=== PATIENT | female | born 1990 | race American Indian/Alaskan Native ===

== ENCOUNTER 2021-03-26 21:46 | Emergency (ER) | payer SELFPAY ==
--- NOTE | 2021-03-26 22:28 | XRay Report ---
CHEST 2 VIEWS INDICATION / CLINICAL INFORMATION: chest pain. COMPARISON: None available. FINDINGS: SUPPORT DEVICES: None. HEART / MEDIASTINUM: No significant abnormality. LUNGS / PLEURA: No significant pulmonary or pleural abnormality. No pneumothorax. ADDITIONAL FINDINGS: No significant additional findings. IMPRESSION: 1. No acute findings. Signer Name: Karlo Suggs MD Signed: 03/26/2021 10:24 PM Workstation Name: [id number]
--- NOTE | 2021-03-26 22:36 | Emergency Department Report ---
ED Chest Pain HPI - General Chief Complaint: Chest Pain Stated Complaint: CHEST PAIN Time Seen by Provider: 03/26/21 22:25 Source: patient Mode of arrival: Ambulatory Limitations: No Limitations - History of Present Illness Initial Comments: 30-year-old female, history of bipolar disorder, presents to ED with complaint of chest pain. Patient states he began experiencing pressure-like chest pain in the center of her chest when driving home approximately 2 hours ago. Patient denies any associated pleuritic pain, palpitations, shortness of breath, nausea or vomiting, diaphoresis. She denies any leg pain or swelling. Patient states ED pressure is now improved. She denies any cough or fever. She reports she smokes Black and mild cigars and marijuana. She denies any other drug use. Mother came to bedside later and expressed that patient needs a mental health evaluation. States patient is off of her medication for bipolar disorder. Patient has been paranoid, thinking someone is after her. Patient has been having mood swings. Patient has also been hearing voices. Mother states patient has been unable to sleep for several days, she has not been eating. She actually kicked her out of the house 3 days ago. Mother states abel lezama's says patient has had this erratic behavior for approximately the last 2 months, however he did not alert patient's family about it. Patient denies any SI or HI. Patient's mother, Ashlee Chiang, can be reached at [phone]. Complaint: chest pain -: hour(s) (2) Pain Location: substernal Pain Radiation: none Severity: moderate Quality: pressure Consistency: now resolved Improves With: nothing Worsens With: nothing re: denies: nausea, vomting, diaphoresis, dyspnea Other Symptoms: denies: cough, fever, leg swelling Treatments Prior to Arrival: none - Related Data Previous Rx's Medication Instructions Recorded Last Taken Type FLUoxetine [PROzac] 20 mg PO QDAY #30 capsule 03/28/21 Unknown Rx OLANZapine [Zyprexa] 5 mg PO DAILY #30 tablet 03/28/21 Unknown Rx Potassium Chloride [K-Dur] 20 meq PO BID #20 tab 03/28/21 Unknown Rx traZODone [Desyrel] 50 mg PO QHS #30 tab 03/28/21 Unknown Rx Allergies Allergy/AdvReac Type Severity Reaction Status Date / Time Fish Containing Products Allergy Unknown Verified 03/27/21 09:31 Heart Score - HEART Score History: Slightly suspicious EKG: Normal Age: < 45 Risk factors: No known risk factors Troponin: < normal limit HEART Score: 0 - EKG Read Time Time EKG Completed: 22:04 EKG Read Time: 22:11 ED Review of Systems ROS: Stated complaint: MH EVAL/CHEST PAIN Other details as noted in HPI Comment: All other systems reviewed and negative Constitutional: denies: chills, fever Respiratory: denies: cough, shortness of breath Cardiovascular: chest pain. denies: palpitations Gastrointestinal: denies: nausea, vomiting Musculoskeletal: other (Denies leg pain or swelling) Psychiatric: auditory hallucinations, other (Paranoia and insomnia reported). denies: suicidal thoughts ED Past Medical Hx - Past Medical History Previous Medical History?: Yes Hx Psychiatric Treatment: Yes (depression, anxiety, bipolar) Additional medical history: herpes - Surgical History Past Surgical History?: Yes Additional Surgical History: - Medications Home Medications: Home Medications Medication Instructions Recorded Confirmed Last Taken Type FLUoxetine [PROzac] 20 mg PO QDAY #30 capsule 03/28/21 Unknown Rx OLANZapine [Zyprexa] 5 mg PO DAILY #30 tablet 03/28/21 Unknown Rx Potassium Chloride [K-Dur] 20 meq PO BID #20 tab 03/28/21 Unknown Rx traZODone [Desyrel] 50 mg PO QHS #30 tab 03/28/21 Unknown Rx ED Physical Exam - General Limitations: No Limitations General appearance: alert, in no apparent distress - Head Head exam: Present: atraumatic, normocephalic - Eye Eye exam: Present: normal appearance, EOMI - ENT ENT exam: Present: mucous membranes moist - Neck Neck exam: Present: normal inspection - Respiratory Respiratory exam: Present: normal lung sounds bilaterally. Absent: respiratory distress - Cardiovascular Cardiovascular Exam: Present: regular rate, normal rhythm - GI/Abdominal GI/Abdominal exam: Present: soft. Absent: distended, tenderness - Extremities Exam Extremities exam: Present: normal inspection. Absent: pedal edema, calf tenderness - Neurological Exam Neurological exam: Present: alert, oriented X3 - Psychiatric Psychiatric exam: Present: normal affect, normal mood - Skin Skin exam: Present: warm, dry, intact, normal color ED Course Vital Signs 03/26/21 03/27/2121 21:59 08:00 19:42 Temperature 98.6 F 98.9 F 98.1 F Pulse Rate 76 75 65 Respiratory 18 20 18 Rate Blood Pressure 107/87 Blood Pressure 126/74 116/71 [Left] O2 Sat by Pulse 100 98 99 Oximetry 03/28/21 03/28/21 01:50 11:28 Temperature 98.2 F 99.2 F Pulse Rate 63 68 Respiratory 16 18 Rate Blood Pressure Blood Pressure 110/62 136/86 [Left] O2 Sat by Pulse 100 100 Oximetry ED Medical Decision Making - Lab Data Result diagrams: 03/26/21 22:32 03/27/21 13:26 - EKG Data -: EKG Interpreted by Me EKG shows normal: sinus rhythm, axis, intervals, QRS complexes, ST-T waves Rate: normal - EKG Data Interpretation: no acute changes - Radiology Data Radiology results: report reviewed, image reviewed - Medical Decision Making 30-year-old female presents to ED with complaints of chest pain. Chest pain work-up is normal. Mother reported that patient has been having some auditory hallucinations, paranoia, insomnia, mood swings and has been off of her bipolar medication. Patient placed on a 1013 at this time for acute psychosis and possible donna. Labs did show some mild hypokalemia, this has been repleted orally. Patient is medically clear for mental health evaluation. Will dispo per psych. Critical care attestation.: If time is entered above; I have spent that time in minutes in the direct care of this critically ill patient, excluding procedure time. ED Disposition Clinical Impression: Bipolar disorder, Hypokalemia, History of chest pain, Encounter for behavioral health screening, History of marijuana use Disposition: DC-01 TO HOME OR SELFCARE Is pt being admited?: No Condition: Stable Instructions: Nonspecific Chest Pain, Adult Additional Instructions: Please continue current outpatient medications. Please follow-up with your primary medical doctor within the next [address] Yee Is a local [facility] doctor. Please follow-up with a sled maker within the next [address] Mitchell is a local sled maker. Please follow-up with outpatient mental health resources that have been provided to the patient. Please make certain to eat foods that are high in potassium, such as bananas. Please have a primary care doctor contact medical records department to obtain copies of laboratory studies, and medical documentation, to follow-up on nonemergent incidental abnormal findings. Recommend that patient abstain from consumption of marijuana, tobacco, smoke products, and alcohol. Please return to the emergency room right away with new pain, worsened pain, migration of pain, projectile vomiting, change in mental status, confusion, inability to tolerate liquid feeds, new, worsened or different symptoms not present on the initial emergency room evaluation. Professional and Agency Contacts To help [facility](02/04) [place] Crisis Line: Suicide Prevention Line: Crisis Text Line: Text START to 393145 Emergency: 911 Outpatient COMMUNITY Behavioral Health Resources: SELVIN: [facility] [address] [place], [place] [address] LAUREL: [facility] [address] [place] [address] HURRICANE: [facility] - [address] [place] [address] Sunday thru Sunday - 8am - 5pm [place]: [facility] Address: [address] [place] [address] LILIAM: [facility] Address: [address] [place] [address] Sunday thru Sunday- 7am-2pm [facility] Address: [address] [place] [address] Sunday thru Sunday: 8:30AM-5PM OUTPATIENT MENTAL HEALTH RESOURCES [facility], [address] [place] [address] CORY Lainez MD: [address] [place], [place] [id number] [facility]: [address] [place], [place] [id number] [address] [address] [place], [place] [id number] [phone] [facility] [address] [facility] [address] [place], [place] [id number] [facility]: [address] [place] [id number] [facility]: [address] [place] [address] Tevin Mays MD: [address] [facility] [address] [facility]: [address] [place] [address] [phone] [place] CRISIS AND ACCESS LINE: * Prescriptions: traZODone [Desyrel] 50 mg PO QHS #30 tab Potassium Chloride [K-Dur] 20 meq PO BID #20 tab FLUoxetine [PROzac] 20 mg PO QDAY #30 capsule OLANZapine [Zyprexa] 5 mg PO DAILY #30 tablet Referrals: LUISA YEE MD [Staff Physician] - 3-5 Days ELSY MITCHELL MD [Staff Physician] - 3-5 Days
[2021-03-26 23:00] LABS: Basophils % (Auto) 0.6 % (0.0-1.8); Eosinophils % (Auto) 0.4 % (0.0-4.3); Hematocrit 39.3 % (30.3-42.9); Hemoglobin 13.6 gm/dl (10.1-14.3); Lymphocytes # (Auto) 1.5 K/mm3 (1.2-5.4); Lymphocytes % (Auto) 30.8 % (13.4-35.0); Mean Corpuscular HGB Conc 35 % (30-34); Mean Corpuscular Volume 91 fl (79-97); Monocytes # (Auto) 0.7 K/mm3 (0.0-0.8); Monocytes % (Auto) 13.5 % (0.0-7.3); Platelet Count 302 K/mm3 (140-440); Red Blood Count 4.29 M/mm3 (3.65-5.03); Red Cell Distribution Width 12.7 % (13.2-15.2)
[2021-03-26 23:09] LABS: INR 1.12 (0.87-1.13)
[2021-03-26 23:10] LABS: Partial Thromboplastin Time 27.6 Sec. (24.2-36.6)
[2021-03-26 23:19] LABS: Blood Urea Nitrogen 5 mg/dL (7-17); Calcium 8.9 mg/dL (8.4-10.2); Hemolysis Index 2
[2021-03-26 23:22] LABS: BUN/Creatinine Ratio 7
[2021-03-26] MEDS ORDERED: POTASSIUM CHLORIDE ER 20 MEQ TAB PO ONE (23:24)
[2021-03-27 00:10] LABS: Bacteria,Urine 1+ /HPF (Negative); Bilirubin,Urine NEG (Negative); Blood,Urine NEG (Negative); Color,Urine Straw (Yellow); Hyaline Casts,Urine 1 /LPF; Protein,Urine <15 mg/dL mg/dL (Negative); Urobilinogen,Urine < 2.0 mg/dL (<2.0)
[2021-03-27 00:13] LABS: Amphetamine Screen,Urine PRESUMPTIVE NEGATIVE; Benzodiazepines Screen,Urine PRESUMPTIVE NEGATIVE; Cannabinoid Screen,Urine PRESUMPTIVE POSITIVE; Cocaine Screen,Urine PRESUMPTIVE NEGATIVE; Methadone Screen,Urine PRESUMPTIVE NEGATIVE; Opiate Screen,Urine PRESUMPTIVE NEGATIVE
[2021-03-27] MEDS ORDERED: diphenhydrAMINE 25 MG CAP PO ONE (00:28)
--- NOTE | 2021-03-27 09:57 | Consultation ---
History of Present Illness - Reason for Consult Consult date: 03/27/21 Reason for consult: mental health eval - History of Present Psychiatric Illness Per ER Note: 30-year-old female, history of bipolar disorder, presents to ED with complaint of chest pain. Patient states he began experiencing pressure- like chest pain in the center of her chest when driving home approximately 2 hours ago. Patient denies any associated pleuritic pain, palpitations, sh ortness of breath, nausea or vomiting, diaphoresis. She denies any leg pain or swelling. Patient states ED pressure is now improved. She denies any cough or fever. She reports she smokes Black and mild cigars and marijuana. She denies any other drug use. Mother came to bedside later and expressed that patient needs a mental health evaluation. States patient is off of her medication for bipolar disorder. Patient has been paranoid, thinking someone is after her. Patient has been having mood swings. Patient has also been hearing voices. Mother states patient has been unable to sleep for several days, she has not been eating. She actually kicked her out of the house 3 days ago. Mother states patient's says patient has had this erratic behavior for approximately the last 2 months, however he did not alert patient's family about it. Patient denies any SI or HI. Aquilino Cassidy is a 30y/o female who states she was brought in to the hospital for chest pain. The patient says she was freaking out and didn't want her mother to leave her. She initially denies any psychiatric history, but when I tell the patient she needs to be honest, she says she has a history of PMD, anxiety and depression. She denies having a diagnoses of bipolar. She denies ever being on any medications, although documented that mother says she stopped taking her meds. The patient does not seem to be forth coming. Her disposition is very quiet. She also is possibly responding to internal stimuli. She at times pauses before answering. She makes fair eye contact. She says she doesn't know why she's in the psych part of the hospital or why her family wanted her to get a psych eval. The patient says "I'm not suicidal" before I ask her anything about it. She did admit to attempting it "once when she was 20." When asking if she hallucinates she initially pauses, then replies "no." The patient says she kicked her out a few days ago. PAST PSYCHIATRIC HISTORY: Diagnoses: bipolar, PMD, anxiety, depression Suicide attempts or Self-harm behavior: Yes Prior psychiatric hospitalizations: Yes Substance Abuse history: Denies Previous psychiatric medications tried: Denies Outpatient treatment: Denies PAST MEDICAL HISTORY: Denies Family Psychiatric History: None reported or documented SOCIAL HISTORY Marital Status: Living Arrangements: with spouse Employment Status: Employed Access to guns/weapons: denies Education: History of Abuse: denies Legal History: denies REVIEW OF SYSTEMS Constitutional: Negative for weight loss ENT: Negative for stridor Respiratory: Negative for cough or hemoptysis All other systems reviewed and are negative MENTAL STATUS EXAMINATION General Appearance and Behavior: Age appropriate, wearing appropriate clothes, cooperative polite with questioning, fair eye contact, cooperative, quiet Cooperation: cooperative Psychomotor Behavior: Psychomotor normal Mood: "okay" Affect and affective range: congruent with stated mood Thought Process: goal directed Thought Content: responding to internal stimuli Speech: Normal volume, Regular rate and rhythm Suicidal Ideation: Denies Homicidal Ideation: Denies hallucination: Denies Delusions: None elicited Impulse Control: Limited Insight and Judgment: Limited Memory: Intact Attention: attentive, engaging Orientation: Alert and oriented Diagnoses: Bipolar Disorder Treatment Plan 1013 Olanzapine 5mg po daily Prozac 20mg po daily Trazodone 50mg po qhs PSYCHOTHERAPY: Supportive psychotherapy provided MEDICAL: Per primary team DELIRIUM PRECAUTIONS: Please re-orient patient frequently, keep lights on during the day, and minimize benzodiazepines and opiates as these medications could worsen patient's confusion. TRANSPORTATION JOB TITLES: Per medical team DISPOSITION: Recommend acute psychiatric inpatient treatment will follow Thank you for the consult. Please contact with any questions and/or concerns. Case staffed with Dr. Hooks Medications and Allergies Allergies Allergy/AdvReac Type Severity Reaction Status Date / Time Fish Containing Products Allergy Unknown Verified 03/27/21 09:31 Mental Status Exam - Vital signs Last Vital Signs Temp 98.9 F 03/27/21 08:00 Pulse 75 03/27/21 08:00 Resp 20 03/27/21 08:00 BP 126/74 03/27/21 08:00 Pulse Ox 98 03/27/21 08:00 Results Result Diagrams: 03/26/21 22:32 03/26/21 22:32 Abnormal lab results 03/26/21 03/26/21 03/26/21 Range/Units 22:32 22:32 23:21 MCHC 35 H (30-34) % RDW 12.7 L (13.2-15.2) % Tyler % (Auto) 13.5 H (0.0-7.3) % Sodium 136 L (137-145) mmol/L Potassium 3.2 L (3.6-5.0) mmol/L BUN 5 L (7-17) mg/dL Salicylates < 0.3 L (2.8-20.0) mg/dL Acetaminophen (10.0-30.0) ug/mL 03/26/21 Range/Units 23:21 MCHC (30-34) % RDW (13.2-15.2) % Tyler % (Auto) (0.0-7.3) % Sodium (137-145) mmol/L Potassium (3.6-5.0) mmol/L BUN (7-17) mg/dL Salicylates (2.8-20.0) mg/dL Acetaminophen 5.0 L (10.0-30.0) ug/mL All other labs normal.
--- NOTE | 2021-03-27 10:44 | Event Note ---
Date: 03/27/21 S: No events reported overnight O: Vital Signs - 24 hr 03/26/21 03/27/21 21:59 08:00 Temperature 98.6 F 98.9 F Pulse Rate 76 75 Respiratory 18 20 Rate Blood Pressure 107/87 Blood Pressure 126/74 [Left] O2 Sat by Pulse 100 98 Oximetry A: Bipolar disorder P: Awaiting psych placement
[2021-03-27] MEDS: FLUoxetine 10 MG TAB PO SCH (10:57)
[2021-03-27 14:10] LABS: Blood Urea Nitrogen 6 mg/dL (7-17); Calcium 9.6 mg/dL (8.4-10.2); Hemolysis Index 2
[2021-03-27 14:11] LABS: BUN/Creatinine Ratio 10
[2021-03-27] MEDS ORDERED: traZODone 50 MG TAB PO SCH (22:00)
--- NOTE | 2021-03-28 09:04 | Progress Note ---
Subjective - Reason for Consult Consult date: 03/28/21 Reason for consult: off meds - Chief Complaint Chief complaint: The patient was seen today. She says she's sleepy and feeling groggy. She says "the meds you gave me made me feel calm yesterday." She says "I feel calm, better." The patient and I spoke about behaviors that she had and her need to be honest about what's going on with her. The patient then says she was involved with risky behavior like "sleeping with people." She say she's heard voices recently, but not since being in the hospital. The patient states "the medication they had me on made me feel different." I advised the patient that she should always consult with her outpatient psychiatrist about issues. She says she has an appointment on the of this month. She says "I realize I do need the meds." The patient denies SI/HI. She says "no, never. I was being honest about that. I never felt like that." She says she was supposed to had been at work. REVIEW OF SYSTEMS Constitutional: Negative for weight loss ENT: Negative for stridor Respiratory: Negative for cough or hemoptysis All other systems reviewed and are negative MENTAL STATUS EXAMINATION General Appearance and Behavior: Age appropriate, wearing appropriate clothes, cooperative polite with questioning, good eye contact, cooperative, quiet Cooperation: cooperative Psychomotor Behavior: Psychomotor normal Mood: "calm, better" Affect and affective range: congruent with stated mood Thought Process: goal directed Thought Content: optimism Speech: Normal volume, Regular rate and rhythm Suicidal Ideation: Denies Homicidal Ideation: Denies hallucination: Denies Delusions: None elicited Impulse Control: Limited Insight and Judgment: Limited Memory: Intact Attention: attentive, engaging Orientation: Alert and oriented Diagnoses: Bipolar Disorder Treatment Plan d/c 1013 Olanzapine 5mg po daily Prozac 20mg po daily Trazodone 50mg po qhs PSYCHOTHERAPY: Supportive psychotherapy provided MEDICAL: Per primary team DELIRIUM PRECAUTIONS: Please re-orient patient frequently, keep lights on during the day, and minimize benzodiazepines and opiates as these medications could worsen patient's confusion. MECHANIC RECOVERY: Per medical team DISPOSITION: Do not recommend acute psychiatric inpatient treatment. The patient understands that if SI/HI or any fear of endangerment arise she is to seek immediate assistance. The redipper to further discuss safety plan The patient to follow up in 7 to 14 days with psych upon discharge, which she says she has an appointment on the of this month The redipper to also provide the patient with needed resources will sign off Thank you for the consult. Please contact with any questions and/or concerns. Case staffed with Dr. Hooks Mental Status Exam - Vital signs Last Vital Signs Temp 98.2 F 03/28/21 01:50 Pulse 63 03/28/21 01:50 Resp 16 03/28/21 01:50 BP 110/62 03/28/21 01:50 Pulse Ox 100 03/28/21 01:50
[2021-03-28] MEDS: FLUoxetine 10 MG TAB PO SCH (09:47)
--- NOTE | 2021-03-28 10:48 | Event Note ---
Date: 03/28/21 Patient seen and examined at this time. She is in no acute distress. She denies physical pain. She is speaking on her cellular phone. She denies homicidality and suicidality. She was deemed medically cleared on her initial ER evaluation. Laboratory studies, EKG, ER documentation, psychiatric documentation reviewed and appreciated. The patient appears to be awake, alert, oriented, sober, and exhibits decision-making capacity. She will be discharged at this time. She states she will go home to her home in [place]. Vital Signs 03/26/21 03/27/21 03/27/21 21:59 08:00 19:42 Temperature 98.6 F 98.9 F 98.1 F Pulse Rate 76 75 65 Respiratory 18 20 18 Rate Blood Pressure 107/87 Blood Pressure 126/74 116/71 [Left] O2 Sat by Pulse 100 98 99 Oximetry 03/28/21 01:50 Temperature 98.2 F Pulse Rate 63 Respiratory 16 Rate Blood Pressure Blood Pressure 110/62 [Left] O2 Sat by Pulse 100 Oximetry Lab Results 03/26/21 03/26/21 03/26/21 Range/Units 22:32 22:32 22:32 WBC 4.9 (4.5-11.0) K/mm3 RBC 4.29 (3.65-5.03) M/mm3 Hgb 13.6 (10.1-14.3) gm/dl Hct 39.3 (30.3-42.9) % MCV 91 (79-97) fl MCH 32 (28-32) pg MCHC 35 H (30-34) % RDW 12.7 L (13.2-15.2) % Plt Count 302 (140-440) K/mm3 Lymph % (Auto) 30.8 (13.4-35.0) % Davidson % (Auto) 13.5 H (0.0-7.3) % Eos % (Auto) 0.4 (0.0-4.3) % Baso % (Auto) 0.6 (0.0-1.8) % Lymph # (Auto) 1.5 (1.2-5.4) K/mm3 Davidson # (Auto) 0.7 (0.0-0.8) K/mm3 Eos # (Auto) 0.0 (0.0-0.4) K/mm3 Baso # (Auto) 0.0 (0.0-0.1) K/mm3 Seg Neutrophils % 54.7 (40.0-70.0) % Seg Neutrophils # 2.7 (1.8-7.7) K/mm3 PT 14.9 (12.2-14.9) Sec. INR 1.12 (0.87-1.13) APTT 27.6 (24.2-36.6) Sec. D-Dimer 139.18 (0-234) ng/mlDDU Sodium 136 L (137-145) mmol/L Potassium 3.2 L (3.6-5.0) mmol/L Chloride 99.9 (98-107) mmol/L Carbon Dioxide 24 (22-30) mmol/L Anion Gap 15 mmol/L BUN 5 L (7-17) mg/dL Creatinine 0.7 (0.6-1.2) mg/dL Estimated GFR > 60 ml/min BUN/Creatinine Ratio 7 % Glucose 86 (65-100) mg/dL Calcium 8.9 (8.4-10.2) mg/dL Troponin T < 0.010 (0.00-0.029) ng/mL HCG, Qual (Negative) Urine Color (Yellow) Urine Turbidity (Clear) Urine pH (5.0-7.0) Ur Specific Doyle (1.003-1.030) Urine Protein (Negative) mg/dL Urine Glucose (UA) (Negative) mg/dL Urine Ketones (Negative) mg/dL Urine Blood (Negative) Urine Nitrite (Negative) Urine Bilirubin (Negative) Urine Urobilinogen (<2.0) mg/dL Ur Leukocyte Esterase (Negative) Urine WBC (Auto) (0.0-6.0) /HPF Urine RBC (Auto) (0.0-6.0) /HPF U Epithel Cells (Auto) (0-13.0) /HPF Urine Bacteria (Auto) (Negative) /HPF Hyaline Casts /LPF Salicylates (2.8-20.0) mg/dL Urine Opiates Screen Urine Methadone Screen Acetaminophen (10.0-30.0) ug/mL Ur Barbiturates Screen Ur Phencyclidine Scrn Ur Amphetamines Screen U Benzodiazepines Scrn Urine Cocaine Screen U Marijuana (THC) Screen Drugs of Abuse Note Plasma/Serum Alcohol (0-0.07) % Coronavirus (PCR) (Negative) 03/26/21 03/26/21 03/26/21 Range/Units 22:32 23:21 23:21 WBC (4.5-11.0) K/mm3 RBC (3.65-5.03) M/mm3 Hgb (10.1-14.3) gm/dl Hct (30.3-42.9) % MCV (79-97) fl MCH (28-32) pg MCHC (30-34) % RDW (13.2-15.2) % Plt Count (140-440) K/mm3 Lymph % (Auto) (13.4-35.0) % Davidson % (Auto) (0.0-7.3) % Eos % (Auto) (0.0-4.3) % Baso % (Auto) (0.0-1.8) % Lymph # (Auto) (1.2-5.4) K/mm3 Davidson # (Auto) (0.0-0.8) K/mm3 Eos # (Auto) (0.0-0.4) K/mm3 Baso # (Auto) (0.0-0.1) K/mm3 Seg Neutrophils % (40.0-70.0) % Seg Neutrophils # (1.8-7.7) K/mm3 PT (12.2-14.9) Sec. INR (0.87-1.13) APTT (24.2-36.6) Sec. D-Dimer (0-234) ng/mlDDU Sodium (137-145) mmol/L Potassium (3.6-5.0) mmol/L Chloride (98-107) mmol/L Carbon Dioxide (22-30) mmol/L Anion Gap mmol/L BUN (7-17) mg/dL Creatinine (0.6-1.2) mg/dL Estimated GFR ml/min BUN/Creatinine Ratio % Glucose (65-100) mg/dL Calcium (8.4-10.2) mg/dL Troponin T (0.00-0.029) ng/mL HCG, Qual Negative (Negative) Urine Color (Yellow) Urine Turbidity (Clear) Urine pH (5.0-7.0) Ur Specific Doyle (1.003-1.030) Urine Protein (Negative) mg/dL Urine Glucose (UA) (Negative) mg/dL Urine Ketones (Negative) mg/dL Urine Blood (Negative) Urine Nitrite (Negative) Urine Bilirubin (Negative) Urine Urobilinogen (<2.0) mg/dL Ur Leukocyte Esterase (Negative) Urine WBC (Auto) (0.0-6.0) /HPF Urine RBC (Auto) (0.0-6.0) /HPF U Epithel Cells (Auto) (0-13.0) /HPF Urine Bacteria (Auto) (Negative) /HPF Hyaline Casts /LPF Salicylates < 0.3 L (2.8-20.0) mg/dL Urine Opiates Screen Urine Methadone Screen Acetaminophen 5.0 L (10.0-30.0) ug/mL Ur Barbiturates Screen Ur Phencyclidine Scrn Ur Amphetamines Screen U Benzodiazepines Scrn Urine Cocaine Screen U Marijuana (THC) Screen Drugs of Abuse Note Plasma/Serum Alcohol (0-0.07) % Coronavirus (PCR) (Negative) 03/26/21 03/26/21 03/26/21 Range/Units 23:21 Unknown Unknown WBC (4.5-11.0) K/mm3 RBC (3.65-5.03) M/mm3 Hgb (10.1-14.3) gm/dl Hct (30.3-42.9) % MCV (79-97) fl MCH (28-32) pg MCHC (30-34) % RDW (13.2-15.2) % Plt Count (140-440) K/mm3 Lymph % (Auto) (13.4-35.0) % Davidson % (Auto) (0.0-7.3) % Eos % (Auto) (0.0-4.3) % Baso % (Auto) (0.0-1.8) % Lymph # (Auto) (1.2-5.4) K/mm3 Davidson # (Auto) (0.0-0.8) K/mm3 Eos # (Auto) (0.0-0.4) K/mm3 Baso # (Auto) (0.0-0.1) K/mm3 Seg Neutrophils % (40.0-70.0) % Seg Neutrophils # (1.8-7.7) K/mm3 PT (12.2-14.9) Sec. INR (0.87-1.13) APTT (24.2-36.6) Sec. D-Dimer (0-234) ng/mlDDU Sodium (137-145) mmol/L Potassium (3.6-5.0) mmol/L Chloride (98-107) mmol/L Carbon Dioxide (22-30) mmol/L Anion Gap mmol/L BUN (7-17) mg/dL Creatinine (0.6-1.2) mg/dL Estimated GFR ml/min BUN/Creatinine Ratio % Glucose (65-100) mg/dL Calcium (8.4-10.2) mg/dL Troponin T (0.00-0.029) ng/mL HCG, Qual (Negative) Urine Color Straw (Yellow) Urine Turbidity Clear (Clear) Urine pH 6.0 (5.0-7.0) Ur Specific Doyle 1.004 (1.003-1.030) Urine Protein <15 mg/dl (Negative) mg/dL Urine Glucose (UA) Neg (Negative) mg/dL Urine Ketones 20 (Negative) mg/dL Urine Blood Neg (Negative) Urine Nitrite Neg (Negative) Urine Bilirubin Neg (Negative) Urine Urobilinogen < 2.0 (<2.0) mg/dL Ur Leukocyte Esterase Neg (Negative) Urine WBC (Auto) 1.0 (0.0-6.0) /HPF Urine RBC (Auto) 1.0 (0.0-6.0) /HPF U Epithel Cells (Auto) 1.0 (0-13.0) /HPF Urine Bacteria (Auto) 1+ (Negative) /HPF Hyaline Casts 1 /LPF Salicylates (2.8-20.0) mg/dL Urine Opiates Screen Presumptive negative Urine Methadone Screen Presumptive negative Acetaminophen (10.0-30.0) ug/mL Ur Barbiturates Screen Presumptive negative Ur Phencyclidine Scrn Presumptive negative Ur Amphetamines Screen Presumptive negative U Benzodiazepines Scrn Presumptive negative Urine Cocaine Screen Presumptive negative U Marijuana (THC) Screen Presumptive positive Drugs of Abuse Note Disclamer Plasma/Serum Alcohol < 0.01 (0-0.07) % Coronavirus (PCR) (Negative) 03/27/21 03/27/21 Range/Units 10:23 13:26 WBC (4.5-11.0) K/mm3 RBC (3.65-5.03) M/mm3 Hgb (10.1-14.3) gm/dl Hct (30.3-42.9) % MCV (79-97) fl MCH (28-32) pg MCHC (30-34) % RDW (13.2-15.2) % Plt Count (140-440) K/mm3 Lymph % (Auto) (13.4-35.0) % Davidson % (Auto) (0.0-7.3) % Eos % (Auto) (0.0-4.3) % Baso % (Auto) (0.0-1.8) % Lymph # (Auto) (1.2-5.4) K/mm3 Davidson # (Auto) (0.0-0.8) K/mm3 Eos # (Auto) (0.0-0.4) K/mm3 Baso # (Auto) (0.0-0.1) K/mm3 Seg Neutrophils % (40.0-70.0) % Seg Neutrophils # (1.8-7.7) K/mm3 PT (12.2-14.9) Sec. INR (0.87-1.13) APTT (24.2-36.6) Sec. D-Dimer (0-234) ng/mlDDU Sodium 136 L (137-145) mmol/L Potassium 4.1 D (3.6-5.0) mmol/L Chloride 100.2 (98-107) mmol/L Carbon Dioxide 29 (22-30) mmol/L Anion Gap 11 mmol/L BUN 6 L (7-17) mg/dL Creatinine 0.6 (0.6-1.2) mg/dL Estimated GFR > 60 ml/min BUN/Creatinine Ratio 10 % Glucose 92 (65-100) mg/dL Calcium 9.6 (8.4-10.2) mg/dL Troponin T (0.00-0.029) ng/mL HCG, Qual (Negative) Urine Color (Yellow) Urine Turbidity (Clear) Urine pH (5.0-7.0) Ur Specific Doyle (1.003-1.030) Urine Protein (Negative) mg/dL Urine Glucose (UA) (Negative) mg/dL Urine Ketones (Negative) mg/dL Urine Blood (Negative) Urine Nitrite (Negative) Urine Bilirubin (Negative) Urine Urobilinogen (<2.0) mg/dL Ur Leukocyte Esterase (Negative) Urine WBC (Auto) (0.0-6.0) /HPF Urine RBC (Auto) (0.0-6.0) /HPF U Epithel Cells (Auto) (0-13.0) /HPF Urine Bacteria (Auto) (Negative) /HPF Hyaline Casts /LPF Salicylates (2.8-20.0) mg/dL Urine Opiates Screen Urine Methadone Screen Acetaminophen (10.0-30.0) ug/mL Ur Barbiturates Screen Ur Phencyclidine Scrn Ur Amphetamines Screen U Benzodiazepines Scrn Urine Cocaine Screen U Marijuana (THC) Screen Drugs of Abuse Note Plasma/Serum Alcohol (0-0.07) % Coronavirus (PCR) Negative (Negative)
[2021-03-28 11:28] VITALS: BP 136/86
--- NOTE | 2021-03-29 09:12 | Electrocardiograph Report ---
[facility] Test Date: 2021-03-26 Test Time: 22:04:59 Pat Name: LORETTA TUCKER Department: Room: Gender: F [employer]: DIRK : 1990 Requested By: YESSENIA DOVE Order Number: [id number] Reading MD: Mike Hoyt Measurements Intervals [place] Rate: 71 P: 30 MD: 143 QRS: 70 QRSD: 85 T: 50 QT: 405 QTc: 440 Interpretive Statements Sinus rhythm No previous ECG available for comparison Electronically Signed On 03-29-2021 9:11:52 EDT by Mike Hoyt
== END 2021-03-28 11:34 | disposition home or self-care (01) ==
LOC: ED 03-27 09:23
DX: F23 Brief psychotic disorder (principal); Z20.822 Contact with and (suspected) exposure to COVID-19; F31.9 Bipolar disorder, unspecified; E87.6 Hypokalemia; Z79.899 Other long term (current) drug therapy
CPT/HCPCS: 36415; 71046; 80048; 80307; 81001; 84484; 84703; 85025; 85379; 85610; 85730; 93005; 99284; U0003; 80320; G0480